=== PATIENT | female | born 1935 | race Asian ===

== ENCOUNTER 2017-02-21 19:41 | Emergency (ER) | payer MEDICARE, OTHER ==
[~2017-02-21] VITALS: Ht 154.9 cm; Wt 43.1 kg
[2017-02-21] MEDS ORDERED: diphenhdrAMINE HCL 25 MG CAP PO ONE ×2 (20:19→20:30)
[2017-02-21] MEDS ORDERED: methylPREDNISolone SOD SUCC 125 MG/2 ML VL IM ONE (21:30)
[2017-02-21] MEDS ORDERED: diphenhdrAMINE HCL 50 MG/1 ML VL IM ONE (21:30)
[2017-02-21 22:21] VITALS: BP 160/60
== END 2017-02-21 22:35 | disposition home or self-care (01) ==
LOC: ER 19:45
DX: L23.9 Allergic contact dermatitis, unspecified cause (principal); L50.9 Urticaria, unspecified; L53.9 Erythematous condition, unspecified; I10 Essential (primary) hypertension
CPT/HCPCS: 96372; 99284; J1200; J2930